=== PATIENT | male | born 1935 | race Caucasian/White ===

== ENCOUNTER 2017-12-29 15:23 | Inpatient (IN) | payer MEDICARE, MEDICAID ==
[2017-12-29] VITALS (335 sets, daily range): BP systolic 65–103; BP diastolic 58–63; PULSE 78–80; TEMP 98–98.8; O2SAT 46–100
[~2017-12-29] VITALS: Ht 167.6 cm; Wt 63.1 kg
[2017-12-29 16:02] LABS: HEMATOCRIT 47.6 % (42.0-52.0); HEMOGLOBIN 15.9 g/dl (13.5-18.0); INR 1.1 (0.8-3.0); MEAN CELL VOLUME 98 fl (80.0-100.0); MEAN CORPUSCULAR HEMOGLOBIN 33 pg (27.0-31.0); MEAN CORPUSCULAR HGB CONC 33 g/dl (33.0-37.0); MEAN PLATELET VOLUME 10.7 fl (7.4-10.4); PLATELET COUNT 142 K/mm3 (130-400); PROTHROMBIN TIME 12.9 SECONDS (9.7-12.8); RED BLOOD COUNT 4.86 M/mm3 (4.20-5.60); REDCELL DISTRIBUTION WIDTH-CV 13.6 % (11.5-14.5)
[2017-12-29 16:05] LABS: COLLECTION METHOD CLEAN CATCH
[2017-12-29 16:12] LABS: MUCOUS Present /lpf; PH 5 (5-8); SQUAMOUS EPITHELIAL 0-2 /hpf; URINE APPEARANCE Hazy; URINE BACTERIA None Seen /hpf; URINE BILIRUBIN Negative (NEGATIVE); URINE BLOOD 2+ (NEGATIVE); URINE COLOR Amber; URINE GLUCOSE Negative (NEGATIVE); URINE KETONE Negative (NEGATIVE); URINE LEUKOCYTE ESTERASE Negative (NEGATIVE); URINE NITRATE Negative (NEGATIVE); URINE PROTEIN(semi-quant) 2+ (NEGATIVE); URINE UROBILINOGEN >=4.0 mg/dL (NEGATIVE)
[2017-12-29 16:19] LABS: TROPONIN-I < 0.012 ng/mL (0.000-0.034)
[2017-12-29 16:25] LABS: BAND 29 % (0-10); LYMPHOCYTE 3 % (20.0-51.0); NEUTROPHILS 60 % (42.0-75.2); PLATELET ESTIMATE NORMAL (NORMAL)
[2017-12-29] MEDS ORDERED: XANAX .25M0.25 MG/TA PO (16:25)
[2017-12-29] MEDS ORDERED: CYMBALTA 20MG20 MG PO (16:25)
[2017-12-29] MEDS ORDERED: FLOMAX 0.40.4 MG/CAP PO (16:26)
[2017-12-29] MEDS ORDERED: PROSCAR 5MG5 MG PO (16:26)
[2017-12-29] MEDS ORDERED: VITAMIN D 50,1.25 MG PO (16:26)
[2017-12-29 16:27] LABS: C-REACTIVE PROTEIN 16.9 mg/dL (0.0-0.9)
[2017-12-29 16:33] LABS: ANION GAP 8 mmol/L (7-16); BLOOD UREA NITROGEN 21 mg/dL (9-20); CALCIUM 8.6 mg/dL (8.4-10.2); CARBON DIOXIDE 27 mmol/L (22-30); CHLORIDE 101 mmol/L (98-107); CREATININE, serum 0.79 mg/dL (0.66-1.25); GLUCOSE 85 mg/dL (74-106); POTASSIUM 4.2 mmol/L (3.4-5.0); SODIUM 136 mmol/L (137-145)
[2017-12-29 16:34] LABS: ALANINE AMINOTRANSFERASE 30 U/L (21-72); ALBUMIN 3.9 gm/dL (3.5-5.0); ALKALINE PHOSPHATASE 71 U/L (50-136); AST,SGOT 41 U/L (15-37)
[2017-12-29 16:46] LABS: ARTERIAL BLD GAS O2 SATURATION 94.1 % (92-100); ARTERIAL BLD GAS TCO2 CT 24.9; ARTERIAL BLOOD GAS BASE EXCESS -0.8 (-2-2); ARTERIAL BLOOD GAS HCO3 23.7 meq/L (22-26); ARTERIAL BLOOD GAS PCO2 39.1 mmHg (35-45)
[2017-12-29 20:54] LABS: ARTERIAL BLD GAS O2 SATURATION 98.7 % (92-100); ARTERIAL BLD GAS TCO2 CT 15.6; ARTERIAL BLOOD GAS BASE EXCESS -5.4 (-2-2); ARTERIAL BLOOD GAS pH 7.51 (7.35-7.45)
[2017-12-29 20:59] LABS: ARTERIAL BLOOD GAS PCO2 19.1 mmHg (35-45)
[2017-12-29 21:12] LABS: ARTERIAL BLD GAS O2 SATURATION 90.9 % (92-100); ARTERIAL BLD GAS TCO2 CT 21.1; ARTERIAL BLOOD GAS BASE EXCESS -4.3 (-2-2); ARTERIAL BLOOD GAS PCO2 34.7 mmHg (35-45); ARTERIAL BLOOD GAS PO2 59.8 mmHg (80-100); ARTERIAL BLOOD GAS pH 7.38 (7.35-7.45)
[2017-12-30] VITALS (1237 sets, daily range): BP systolic 65–132; BP diastolic 48–84; PULSE 52–78; TEMP 97.3–98.8; O2SAT 75–100
[2017-12-30 04:59] LABS: ARTERIAL BLD GAS O2 SATURATION 90.5 % (92-100); ARTERIAL BLD GAS TCO2 CT 20.2; ARTERIAL BLOOD GAS BASE EXCESS -4.1 (-2-2); ARTERIAL BLOOD GAS HCO3 19.3 meq/L (22-26); ARTERIAL BLOOD GAS PCO2 30.5 mmHg (35-45); ARTERIAL BLOOD GAS PO2 57.1 mmHg (80-100); ARTERIAL BLOOD GAS pH 7.42 (7.35-7.45)
[2017-12-30 05:01] LABS: MEAN CELL VOLUME 97 fl (80.0-100.0); MEAN CORPUSCULAR HGB CONC 34 g/dl (33.0-37.0); MEAN PLATELET VOLUME 10.4 fl (7.4-10.4); PLATELET COUNT 106 K/mm3 (130-400); REDCELL DISTRIBUTION WIDTH-CV 13.8 % (11.5-14.5)
[2017-12-30 05:12] LABS: ALBUMIN 2.4 gm/dL (3.5-5.0); BILIRUBIN,TOTAL 0.7 mg/dL (0.0-1.0); CALCIUM 6.7 mg/dL (8.4-10.2); CREATININE, serum 0.56 mg/dL (0.66-1.25); TOTAL PROTEIN 4.9 gm/dL (6.4-8.2)
[2017-12-30 05:17] LABS: HEMATOCRIT 36.8 % (42.0-52.0); HEMOGLOBIN 12.5 g/dl (13.5-18.0); INR 1.5 (0.8-3.0); MEAN CORPUSCULAR HEMOGLOBIN 33 pg (27.0-31.0); PROTHROMBIN TIME 17.4 SECONDS (9.7-12.8)
[2017-12-30 05:24] LABS: POTASSIUM 2.9 mmol/L (3.4-5.0)
[2017-12-30 06:27] LABS: BAND 29 % (0-10); LYMPHOCYTE 15 % (20.0-51.0); NEUTROPHILS 52 % (42.0-75.2)
[2017-12-30 06:28] LABS: PLATELET ESTIMATE DECREASED (NORMAL)
[2017-12-31] VITALS (1087 sets, daily range): BP systolic 85–131; BP diastolic 56–82; PULSE 56–85; TEMP 97.6–98.8; O2SAT 44–100
[2017-12-31 05:07] LABS: ARTERIAL BLD GAS O2 SATURATION 94.7 % (92-100); ARTERIAL BLD GAS TCO2 CT 18.1; ARTERIAL BLOOD GAS BASE EXCESS -6.3 (-2-2); ARTERIAL BLOOD GAS HCO3 17.3 meq/L (22-26); ARTERIAL BLOOD GAS PCO2 28.7 mmHg (35-45); ARTERIAL BLOOD GAS PO2 74.3 mmHg (80-100)
[2017-12-31 06:14] LABS: BASO % 0.2 % (0.0-2.0); GRAN % 81.2 % (42.2-75.2); LYMPH # 0.7 (1.2-3.4); LYMPH % 10.9 % (20.0-51.0); MEAN CELL VOLUME 99 fl (80.0-100.0); MEAN CORPUSCULAR HGB CONC 33 g/dl (33.0-37.0); MEAN PLATELET VOLUME 10.6 fl (7.4-10.4); MONO # 0.4 (0.1-0.6); MONO % 7.2 % (1.7-9.3); PLATELET COUNT 106 K/mm3 (130-400); RED BLOOD COUNT 3.54 M/mm3 (4.20-5.60); REDCELL DISTRIBUTION WIDTH-CV 13.7 % (11.5-14.5)
[2017-12-31 06:18] LABS: HEMATOCRIT 34.9 % (42.0-52.0); HEMOGLOBIN 11.5 g/dl (13.5-18.0); MEAN CORPUSCULAR HEMOGLOBIN 32 pg (27.0-31.0)
[2017-12-31 06:21] LABS: INR 1.2 (0.8-3.0); PROTHROMBIN TIME 13.4 SECONDS (9.7-12.8)
[2017-12-31 06:34] LABS: ALBUMIN 2.4 gm/dL (3.5-5.0); BILIRUBIN,TOTAL 0.8 mg/dL (0.0-1.0); CALCIUM 7.2 mg/dL (8.4-10.2); CREATININE, serum 0.51 mg/dL (0.66-1.25); POTASSIUM 3.4 mmol/L (3.4-5.0)
[2017-12-31] MEDS ORDERED: ASPIRIN 81M81 MG/TA2 PO (16:47)
[2017-12-31] MEDS ORDERED: XANAX 1MG1 MG (16:48)
[2018-01-01] VITALS (427 sets, daily range): BP systolic 97–130; BP diastolic 58–79; PULSE 61–76; TEMP 97–98.3; O2SAT 90–100
[2018-01-01 05:44] LABS: BASO % 0.3 % (0.0-2.0); GRAN # 3.2 (1.4-6.5); GRAN % 83.8 % (42.2-75.2); HEMATOCRIT 37.1 % (42.0-52.0); HEMOGLOBIN 12.7 g/dl (13.5-18.0); LYMPH # 0.4 (1.2-3.4); LYMPH % 9.1 % (20.0-51.0); MEAN CELL VOLUME 96 fl (80.0-100.0); MEAN CORPUSCULAR HEMOGLOBIN 33 pg (27.0-31.0); MEAN CORPUSCULAR HGB CONC 34 g/dl (33.0-37.0); MEAN PLATELET VOLUME 10.7 fl (7.4-10.4); MONO # 0.2 (0.1-0.6); MONO % 6.3 % (1.7-9.3); PLATELET COUNT 145 K/mm3 (130-400); RED BLOOD COUNT 3.88 M/mm3 (4.20-5.60); REDCELL DISTRIBUTION WIDTH-CV 13.4 % (11.5-14.5)
[2018-01-01 05:55] LABS: INR 1.1 (0.8-3.0); PROTHROMBIN TIME 12.6 SECONDS (9.7-12.8)
[2018-01-01 05:59] LABS: ALBUMIN 2.7 gm/dL (3.5-5.0); BILIRUBIN,TOTAL 0.7 mg/dL (0.0-1.0); CALCIUM 7.7 mg/dL (8.4-10.2); CREATININE, serum 0.56 mg/dL (0.66-1.25); POTASSIUM 3.1 mmol/L (3.4-5.0); TOTAL PROTEIN 5.6 gm/dL (6.4-8.2)
[2018-01-02 03:59] VITALS: BP 118/50; PULSE 56; TEMP 97.5
[2018-01-02 06:42] LABS: MEAN CELL VOLUME 96 fl (80.0-100.0); MEAN CORPUSCULAR HGB CONC 34 g/dl (33.0-37.0); MEAN PLATELET VOLUME 10.7 fl (7.4-10.4); PLATELET COUNT 177 K/mm3 (130-400); RED BLOOD COUNT 3.55 M/mm3 (4.20-5.60); REDCELL DISTRIBUTION WIDTH-CV 13.3 % (11.5-14.5)
[2018-01-02 06:45] LABS: HEMATOCRIT 33.9 % (42.0-52.0); HEMOGLOBIN 11.6 g/dl (13.5-18.0); MEAN CORPUSCULAR HEMOGLOBIN 33 pg (27.0-31.0)
[2018-01-02 07:10] LABS: ALBUMIN 2.4 gm/dL (3.5-5.0); BILIRUBIN,TOTAL 0.6 mg/dL (0.0-1.0); CALCIUM 7.8 mg/dL (8.4-10.2); CREATININE, serum 0.55 mg/dL (0.66-1.25); POTASSIUM 3.3 mmol/L (3.4-5.0); TOTAL PROTEIN 4.7 gm/dL (6.4-8.2)
[2018-01-02 08:45] VITALS: BP 112/62; PULSE 50; TEMP 97.6
[2018-01-02 10:22] VITALS: BP 121/62; PULSE 49; TEMP 98
[2018-01-02 16:02] VITALS: BP 114/70; PULSE 62; TEMP 98.2
[2018-01-02 21:55] VITALS: BP 124/70; PULSE 52; TEMP 97.5
[2018-01-03] VITALS (7 sets, daily range): BP systolic 97–147; BP diastolic 53–74; PULSE 53–85; TEMP 97.4–98.5
[2018-01-03 07:04] LABS: MEAN CELL VOLUME 97 fl (80.0-100.0); MEAN CORPUSCULAR HGB CONC 34 g/dl (33.0-37.0); MEAN PLATELET VOLUME 10.5 fl (7.4-10.4); PLATELET COUNT 193 K/mm3 (130-400); RED BLOOD COUNT 3.54 M/mm3 (4.20-5.60); REDCELL DISTRIBUTION WIDTH-CV 13.6 % (11.5-14.5)
[2018-01-03 07:05] LABS: HEMATOCRIT 34.3 % (42.0-52.0); HEMOGLOBIN 11.5 g/dl (13.5-18.0); MEAN CORPUSCULAR HEMOGLOBIN 32 pg (27.0-31.0)
[2018-01-03 07:18] LABS: CREATININE, serum 0.57 mg/dL (0.66-1.25); POTASSIUM 3.5 mmol/L (3.4-5.0)
[2018-01-03 07:55] LABS: BAND 4 % (0-10); LYMPHOCYTE 22 % (20.0-51.0); NEUTROPHILS 71 % (42.0-75.2); PLATELET ESTIMATE NORMAL (NORMAL)
[2018-01-04] VITALS (7 sets, daily range): BP systolic 109–207; BP diastolic 46–78; PULSE 45–67; TEMP 97.5–98.2
[2018-01-04 06:47] LABS: MEAN CELL VOLUME 98 fl (80.0-100.0); MEAN CORPUSCULAR HGB CONC 34 g/dl (33.0-37.0); MEAN PLATELET VOLUME 10.6 fl (7.4-10.4); PLATELET COUNT 223 K/mm3 (130-400); RED BLOOD COUNT 3.54 M/mm3 (4.20-5.60); REDCELL DISTRIBUTION WIDTH-CV 13.4 % (11.5-14.5)
[2018-01-04 06:53] LABS: HEMATOCRIT 34.6 % (42.0-52.0); HEMOGLOBIN 11.6 g/dl (13.5-18.0); MEAN CORPUSCULAR HEMOGLOBIN 33 pg (27.0-31.0)
[2018-01-04 06:58] LABS: CALCIUM 7.6 mg/dL (8.4-10.2); CREATININE, serum 0.58 mg/dL (0.66-1.25); POTASSIUM 3.5 mmol/L (3.4-5.0)
[2018-01-04 08:53] LABS: BAND 6 % (0-10); EOSINOPHIL 2 % (0-4); LYMPHOCYTE 22 % (20.0-51.0); NEUTROPHILS 61 % (42.0-75.2)
[2018-01-04 08:55] LABS: PLATELET ESTIMATE NORMAL (NORMAL)
[2018-01-04] MEDS ORDERED: TAMIFLU30 MG PO (10:13)
[2018-01-04] MEDS ORDERED: PROAIR HFA0.09 MG/AC IH (10:17)
== END 2018-01-04 14:45 | DRG 871 ==
LOC: COL.ER 15:23 → MEDICAL 16:45 → ICU 16:45 → MEDICAL 01-01 08:15
PROVIDERS: Emergency Medicine; Family Medicine; Internal Medicine; Internal Medicine Pulmonary Disease; Physician Assistant
PROC: 02H633Z Insertion of Infusion Device into Right Atrium, Percutaneous Approach (ICD-10-PCS; principal; 2017-12-29)
DX: A41.89 Other specified sepsis (principal); J18.9 Pneumonia, unspecified organism; J10.00 Influenza due to other identified influenza virus with unspecified type of pneumonia; J96.01 Acute respiratory failure with hypoxia; R65.21 Severe sepsis with septic shock; E44.0 Moderate protein-calorie malnutrition; F17.210 Nicotine dependence, cigarettes, uncomplicated; E87.6 Hypokalemia
CPT/HCPCS: 99231-AI; 99232-AI; 99233-AI; 99239; C9113; J0696; J1610; J1644; J1650; J1720; J1940; J1956; J2543; J3370; J3480; J7030; J7050; J7060; J7070; Q9967